=== PATIENT | male | born 1995 | race Two or more races ===

== ENCOUNTER 2019-01-04 04:59 | Inpatient (IN) | payer MEDICARE ==
[~2019-01-04 04:59] MED LIST: BUPIVACAINE HCL/PF 0.5% (5 MG/ML) 30 ML VIAL IJ ONE
--- NOTE | 2019-01-04 06:06 | PDOC ---
History of Present Illness - General Chief Complaint: Nausea/Vomiting Stated Complaint: ABDOMINAL PAIN - History of Present Illness Initial Comments: 01/04/19 06:06 23y/o M with no significant. hx presenting to ED with 1 day of cramping abdominal epigastric pain. He describes it as non-radiating pain that began yesterday morning. The pain last for 5-10 minutes and is relieved by vomiting.He has had 3-4 episodes of non-bloody emesis and has been unable to keep food down. His last bowel movement was yesterday at 5pm. He denies any urinary symptoms (dysuria, hematuria,urgency, frequency), diarrhea, bloody stools, fevers, chills, back pain. 01/04/19 06:11 01/04/19 06:30 Past History - Past Medical History Allergies/Adverse Reactions: Allergies Allergy/AdvReac Type Severity Reaction Status Date / Time No Known Allergies Allergy Verified 01/04/19 05:40 Home Medications: Ambulatory Orders Amox-Tr/K Cl [Augmentin - 875Mg Tablet] 1 tab PO BID #14 tablet 01/04/19 Oxycodone HCl/Acetaminophen [Percocet 5/325 -] 1 tab PO Q6H #40 tab MDD 5 COPD: No Other medical history: DENIES - Immunization History Immunization Up to Date: Yes - Suicide/Smoking/Psychosocial Hx Smoking History: Never smoked Have you smoked in the past 12 months: No Information on smoking cessation initiated: No Hx Alcohol Use: No Drug/Substance Use Hx: No Review of Systems - Review of Systems All Other Systems: Reviewed and Negative *Physical Exam - Vital Signs Last Vital Signs Temp Pulse Resp BP Pulse Ox 98.5 F 110 H 17 135/87 100 01/04/19 05:38 01/04/19 05:38 01/04/19 05:38 01/04/19 05:38 01/04/19 05:38 - Physical Exam General Appearance: Yes: Nourished, Appropriately Dressed. No: Apparent Distress HEENT: negative: Scleral Icterus (R), Scleral Icterus (L) Neck: positive: Trachea midline, Supple. negative: Tender Respiratory/Chest: positive: Lungs Clear, Normal Breath Sounds. negative: Chest Tender, Respiratory Distress, Accessory Muscle Use, Labored Respiration, Wheezing Cardiovascular: positive: Regular Rhythm, Regular Rate, S1, S2. negative: Edema , JVD Vascular Pulses: Dorsalis-Pedis (R): 2+, Doralis-Pedis (L): 2+ Gastrointestinal/Abdominal: positive: Normal Bowel Sounds, Soft, Rebound. negative: Protuberent, Distended, Guarding, Tenderness Musculoskeletal: positive: Normal Inspection. negative: CVA Tenderness, Decreased Range of Motion Extremity: positive: Normal Capillary Refill, Normal Inspection, Normal Range of Motion. negative: Pedal Edema Integumentary: positive: Normal Color, Dry, Warm Neurologic: positive: Fully Oriented, Alert, Normal Mood/Affect, Normal Response ED Treatment Course - LABORATORY CBC & Chemistry Diagram: 01/04/19 06:20 01/04/19 06:20 Medical Decision Making - Medical Decision Making 01/04/19 06:18 23y/o M with no significant. hx presenting to ED with 1 day of cramping abdominal epigastric pain. Ddx: Appendicitis vs Nephrolithiasis vs gastroenteritis -Fluids (IV normal saline) -cbc,cmp, ua -CT abdomen and pelvis with contrast. 01/04/19 06:30 01/04/19 06:56 *DC/Admit/Observation/Transfer Diagnosis at time of Disposition: Appendicitis Qualifiers: Appendicitis type: acute appendicitis Acute appendicitis type: unspecified acute appendicitis type Qualified Code(s): K35.80 - Unspecified acute appendicitis - Discharge Dispostion Disposition: HOME Condition at time of disposition: Good - Referrals - Patient Instructions - Post Discharge Activity
[2019-01-04] MEDS ORDERED: ACETAMINOPHEN 1000 MG/100 ML VIAL (NON FORMULARY) IVPB ONE ×2 (06:08→14:36)
[2019-01-04] MEDS ORDERED: SODIUM CHLORIDE 1,000 ML IV STA (06:08)
[2019-01-04] MEDS ORDERED: KETOROLAC TROMETHAMINE 30 MG/1 ML VIAL IVPUSH ONE (06:10)
--- NOTE | 2019-01-04 06:10 | PDOC ---
Attending Attestation - Resident Resident Name: Michael Farmer - ED Attending Attestation I have performed the following: I have examined & evaluated the patient, The case was reviewed & discussed with the resident, I agree w/resident's findings & plan - HPI HPI: 01/04/19 06:09 Pt comes with on off left sided abd pain. - Physicial Exam PE: 01/04/19 06:10 Agree with resident exam - Medical Decision Making 01/04/19 06:10 Hydration, toradol, labs, UA , reeval. Pt will be signed out to the day team. 01/04/19 06:53 Pt has WBC of 16 with 90% shift; he may have appendicitis. We are awaiting CT abd/pelvis and chem 01/08/19 22:13 Pt signed out
[2019-01-04] MEDS ORDERED: KETOROLAC TROMETHAMINE 30 MG/1 ML VIAL ONE (06:12)
[2019-01-04 06:31] LABS: BASO % 0.3 % (0-2.0); HEMATOCRIT 40.3 % (35.4-49); HEMOGLOBIN 13.9 GM/dL (11.7-16.9); LYMPH % 3.1 % (8-40); MCH 30.4 pg (25.7-33.7); MCHC 34.6 g/dl (32.0-35.9); MEAN CELL VOLUME 87.9 fl (80-96); MEAN PLT VOLUME 8.7 fl (7.5-11.1); MONO % 6.1 % (3.8-10.2); NEUT % 90.5 % (42.8-82.8); PLATELET COUNT 209 K/MM3 (134-434); RBC 4.58 M/mm3 (4.00-5.60); RDW 12.6 % (11.9-15.9); WHITE BLOOD COUNT 16.2 K/mm3 (4.0-10.0)
[2019-01-04 06:54] LABS: ALBUMIN 4.3 g/dl (3.4-5.0); BILIRUBIN,TOTAL 0.9 mg/dL (0.2-1); BLOOD UREA NITROGEN 9.7 mg/dL (7-18); CALCIUM 9.4 mg/dL (8.5-10.1); POTASSIUM 4.6 mmol/L (3.5-5.1); TOT PROT 7.5 g/dl (6.4-8.2)
--- NOTE | 2019-01-04 07:26 | PDOC ---
*Physical Exam - Vital Signs Last Vital Signs Temp Pulse Resp BP Pulse Ox 98.5 F 110 H 17 135/87 100 01/04/19 05:38 01/04/19 05:38 01/04/19 05:38 01/04/19 05:38 01/04/19 05:38 - Physical Exam General Appearance: Yes: Nourished, Appropriately Dressed. No: Apparent Distress, Disheveled HEENT: positive: EOMI, Normal Voice, Symmetrical Neck: positive: Trachea midline. negative: Tender, Carotid bruit Respiratory/Chest: positive: Lungs Clear, Normal Breath Sounds. negative: Chest Tender, Respiratory Distress, Accessory Muscle Use Cardiovascular: positive: Regular Rhythm, Regular Rate, S1, S2. negative: Murmur Vascular Pulses: Dorsalis-Pedis (R): 2+, Doralis-Pedis (L): 2+ Gastrointestinal/Abdominal: positive: Normal Bowel Sounds, Flat, Soft, Other ( no rebound on my exam s/p toradol and IVF). negative: Tender, Organomegaly, Pulsatile Mass, Guarding Musculoskeletal: positive: Normal Inspection. negative: CVA Tenderness Extremity: positive: Normal Capillary Refill, Normal Inspection, Normal Range of Motion Integumentary: positive: Normal Color, Dry, Warm. negative: Cyanotic, Erythema , Jaundice, Rash Neurologic: positive: privacy officer II-XII NML intact, Fully Oriented, Alert, Normal Response, Motor Strength 5/5 ED Treatment Course - LABORATORY CBC & Chemistry Diagram: 01/04/19 06:20 01/04/19 06:20 - ADDITIONAL ORDERS Additional order review: Laboratory Results 01/04/19 06:20 Sodium 139 Potassium 4.6 Chloride 104 Carbon Dioxide 30 Anion Gap 5 L BUN 9.7 Creatinine 1.0 Est GFR (CKD-EPI)AfAm 123.27 Est GFR (CKD-EPI)NonAf 106.36 Random Glucose 132 H Calcium 9.4 Total Bilirubin 0.9 AST 13 L ALT 17 Alkaline Phosphatase 69 Total Protein 7.5 Albumin 4.3 01/04/19 06:20 RBC 4.58 MCV 87.9 MCHC 34.6 RDW 12.6 MPV 8.7 Neutrophils % 90.5 H Lymphocytes % 3.1 L Monocytes % 6.1 Eosinophils % 0.0 Basophils % 0.3 - Medications Given in the ED: ED Medications Discontinued Medications Generic Name Dose Route Start Last Admin Trade Name Freq PRN Reason Stop Dose Admin Acetaminophen 1,000 mg 01/04/19 06:08 01/04/19 06:29 Ofirmev Injection - IVPB 01/04/19 06:09 Not Given ONCE ONE Sodium Chloride 1,000 mls @ 1,000 mls/hr 01/04/19 06:08 01/04/19 06:28 Normal Saline - IV 01/04/19 07:07 1,000 mls/hr ASDIR STA Administration Ketorolac Tromethamine 30 mg 01/04/19 06:10 01/04/19 06:28 Toradol Injection - IVPUSH 01/04/19 06:11 30 mg ONCE ONE Administration Medical Decision Making - Medical Decision Making 01/04/19 07:19 23y/o man with no significant pmh p/w 1 day of cramping, non-radiating, abdominal epigastric pain and n/v. -Sign out received from Dr. Farmer -Baseline exam: +rebound, tachy to 110 -CBC with leukocytosis (16.2) -CMP / Liver Studies / Glucose wnl / Cr 1.0 -Urine pending -CTAP w/contrast pending 01/04/19 07:34 -Pt without tenderness / rebound on my exam s/p medication and fluids. Endorsing some hunger. No nausea or vomiting at this time. -Headed to CT 01/04/19 08:27 -CTAP with appendicitis, possible perforation -Zosyn 4.5 given -Last meal 3AM, confirmed no medications -NPO -PT/INR, T&S, EKG ordered 01/04/19 08:33 -Spoke to Dr. Linder with surgery 01/04/19 08:36 -EKG NSR, Tachycardic to 106, Normal axis, QTc 443, Normal morphologies without ischemic changes *DC/Admit/Observation/Transfer Diagnosis at time of Disposition: Appendicitis Qualifiers: Appendicitis type: acute appendicitis Acute appendicitis type: unspecified acute appendicitis type Qualified Code(s): K35.80 - Unspecified acute appendicitis - Discharge Dispostion Condition at time of disposition: Guarded Decision to Admit order: Yes - Referrals - Patient Instructions - Post Discharge Activity
[2019-01-04 07:44] LABS: EPI CELLS 3.3 /HPF (0-5/HPF); HYALINE CASTS 20 /lpf (0-8); PH,URINE >= 9.0 (5.0-8.0); URINE APPEARANCE CLEAR; URINE BACTERIA 2.7 /hpf (NEGATIVE); URINE BILIRUBIN NEGATIVE (NEGATIVE); URINE COLOR YELLOW; URINE GLUCOSE (UA) TRACE (NEGATIVE); URINE KETONE 3+ (NEGATIVE); URINE LEUK ESTERASE NEGATIVE (NEGATIVE); URINE NITRITE NEGATIVE (NEGATIVE); URINE PROTEIN 1+ (NEGATIVE); URINE RBC 1 /hpf (0-4); URINE WBC 1 /hpf (0-5)
[2019-01-04] MEDS ORDERED: PIPERACILLIN/TAZOB 4.5 GM 4.5 GM in DEXTROSE 5%-WATER 100 ML IVPB ONE ×2 (08:20→17:30)
[2019-01-04] MEDS ORDERED: PIPERACILLIN/TAZOB 4.5 GM 4.5 GM/100 ML BAG IVPB ONE (08:25)
[2019-01-04] MEDS ORDERED: morphine SULFATE 4 MG/ML VIAL IVPUSH PRN ×2 (08:51→14:28)
--- NOTE | 2019-01-04 09:01 | CONSULT ---
Consult Consult Specialty:: General Surgery - History Source History Provided By: Patient, Medical Record Limitations to Obtaining History: No Limitations - Alcohol/Substance Use Hx Alcohol Use: No - Smoking History Smoking history: Never smoked Have you smoked in the past 12 months: No Home Medications - Allergies Allergies/Adverse Reactions: Allergies Allergy/AdvReac Type Severity Reaction Status Date / Time No Known Allergies Allergy Verified 01/04/19 05:40 - Home Medications Home Medications: Ambulatory Orders NK [No Known Home Medication] 01/04/19 Physical Exam Vital Signs: Vital Signs Temperature 98.5 F 01/04/19 05:38 Pulse Rate 110 H 01/04/19 05:38 Respiratory Rate 17 01/04/19 05:38 Blood Pressure 135/87 01/04/19 05:38 O2 Sat by Pulse Oximetry (%) 100 01/04/19 05:38 Labs: CBC, BMP 01/04/19 06:20 01/04/19 06:20
--- NOTE | 2019-01-04 09:02 | HP ---
Admitting History and Physical - Admission Chief Complaint: abdominal pain History of Present Illness: 23yo male with no significant PMH presented to ED with 1 day of cramping abdominal epigastric pain. He describes it as non-radiating pain that began yesterday morning. The pain last for 5-10 minutes and is relieved by vomiting.He has had 3-4 episodes of non-bloody emesis and has been unable to keep food down. His last bowel movement was yesterday at 5pm. He denies any urinary symptoms (dysuria, hematuria,urgency, frequency), diarrhea, bloody stools, fevers, chills, back pain. History Source: Patient, Medical Record Limitations to Obtaining History: No Limitations - Smoking History Smoking history: Never smoked Have you smoked in the past 12 months: No - Alcohol/Substance Use Hx Alcohol Use: No Home Medications - Allergies Allergies/Adverse Reactions: Allergies Allergy/AdvReac Type Severity Reaction Status Date / Time No Known Allergies Allergy Verified 01/04/19 05:40 - Home Medications Home Medications: Ambulatory Orders NK [No Known Home Medication] 01/04/19 Review of Systems - Review of Systems Constitutional: denies: Chills, Fever Eyes: denies: Blind Spots, Recent Change in Vision HENT: denies: Difficult Swallowing, Throat Pain Neck: denies: Decreased ROM, Tenderness Cardiovascular: denies: Chest Pain, Palpitations Respiratory: denies: Cough, SOB, SOB on Exertion Gastrointestinal: reports: Abdominal Pain. denies: Constipation, Diarrhea Genitourinary: denies: Burning, Discharge, Dysuria Musculoskeletal: denies: Crepitus, Muscle Pain Integumentary: denies: Pallor, Rash Neurological: denies: Seizure, Syncope, Tremors Endocrine: denies: Unexplained Weight Gain, Unexplained Weight Loss Hematology/Lymphatic: denies: Easily Bruised, Excessive Bleeding Psychiatric: denies: Anxiety, Depression Physical Examination Vital Signs: Vital Signs Temperature 98.5 F 01/04/19 05:38 Pulse Rate 110 H 01/04/19 05:38 Respiratory Rate 17 01/04/19 05:38 Blood Pressure 135/87 01/04/19 05:38 O2 Sat by Pulse Oximetry (%) 100 01/04/19 05:38 Constitutional: Yes: Well Nourished, No Distress, Calm Eyes: Yes: Conjunctiva Clear, EOM Intact HENT: Yes: Atraumatic, Normocephalic Neck: Yes: Supple, Trachea Midline Cardiovascular: Yes: Regular Rate and Rhythm, S1, S2 Respiratory: Yes: Regular, CTA Bilaterally Gastrointestinal: Yes: Normal Bowel Sounds, Soft, Tenderness, Tenderness, Rebound (RLQ) ...Rectal Exam: No: Deferred Renal/: No: CVA Tenderness - Left, CVA Tenderness - Right Breast(s): No: Mass, Nipple Inversion Musculoskeletal: No: Muscle Pain, Muscle Weakness Extremities: No: Cool, Cyanosis Edema: No Peripheral Pulses WNL: Yes Peripheral Pulses: Left Radial: 2+, Right Radial: 2+, Left Doralis Pedis: 2+, Right Dorsalis Pedis: 2+, Left Femoral: 2+, Right Femoral: 2+ Integumentary: No: Bruising, Skin Tear Neurological: Yes: Alert, Oriented Psychiatric: Yes: Alert, Oriented Labs: CBC, BMP 01/04/19 06:20 01/04/19 06:20 Imaging - Results Cat Scan: Report Reviewed, Image Reviewed Problem List - Problems (1) Acute appendicitis with localized peritonitis Assessment/Plan: 23yo male with acute appendicitis X1 day NPO and IVF hydartion OR for emergency surgery Discussed with patient risks, benefits and alternatives of laparoscopic possible open appendectomy, including but not limited to bleeding, infection, injury to adjacent structures, leak or injury, intraabdominal abscess, incisional hernia, need for further procedures, ; alternatives include antibiotics, delayed or no surgery - risks of this include failure of nonoperative therapy, perforation, sepsis, recurrence, . Patient desires to proceed with operation - will take to OR for above. Informed consent signed for same. Code(s): K35.30 - ACUTE APPENDICITIS WITH LOC PERITONITIS, W/O PERF OR GANGR Qualifiers: Appendicitis gangrene presence: without gangrene Appendicitis perforation presence: unspecified whether perforation present Appendicitis abscess presence: unspecified whether abscess present Qualified Code(s): K35.30 - Acute appendicitis with localized peritonitis, without perforation or gangrene (2) Abdominal pain in male Code(s): R10.9 - UNSPECIFIED ABDOMINAL PAIN (3) Leukocytosis Code(s): D72.829 - ELEVATED WHITE BLOOD CELL COUNT, UNSPECIFIED Qualifiers: Leukocytosis type: bandemia Qualified Code(s): D72.825 - Bandemia (4) Appendiceal abscess Code(s): K35.33 - ACUTE APPENDICITIS WITH PERF AND LOC PERITONITIS, WITH ABSCS
[2019-01-04] MEDS: LACTATED RINGERS SOLUTION 1,000 ML IV SCH ×3 (09:09→21:18)
[2019-01-04 09:29] LABS: INR 1.13 (0.83-1.09); PROTHROMBIN TIME (PATIENT) 13.3 SEC (9.7-13.0)
[2019-01-04] MEDS ORDERED: BUPIVACAINE HCL/PF 0.5% (5MG/ML) 10 ML VIAL ONE (11:18)
--- NOTE | 2019-01-04 11:49 | EKG ---
Test Reason : Blood Pressure : / mmHG Vent. Rate : 106 BPM Atrial Rate : 106 BPM P-R Int : 144 ms QRS Dur : 092 ms QT Int : 334 ms P-R-T Axes : 071 051 063 degrees QTc Int : 443 ms SINUS TACHYCARDIA OTHERWISE NORMAL ECG NO PREVIOUS ECGS AVAILABLE Confirmed by BACILIO DOTSON MD ([id number]) on 01/04/2019 11:48:52 AM Referred By: Confirmed By:BACILIO DOTSON MD
[2019-01-04 12:01] VITALS: BMI 20.7
[2019-01-04] MEDS ORDERED: MIDAZOLAM HCL 2 MG/2 ML SINGLE DOSE VIAL ONE ×2 (12:55)
[2019-01-04] MEDS ORDERED: fentaNYL CITRATE 250 MCG/5 ML VIAL ONE (13:00)
[2019-01-04] MEDS ORDERED: BUPIVACAINE HCL/PF 0.5% (5 MG/ML) 30 ML VIAL IJ ONE ×2 (13:00)
[2019-01-04] MEDS ORDERED: ROCURONIUM BROMIDE 50 MG/5 ML SYRINGE ONE (13:01)
[2019-01-04] MEDS ORDERED: PROPOFOL 20 ML ONE (13:01)
[2019-01-04] MEDS ORDERED: NEOSTIGMINE METHYLSULFATE 0.5 MG/ML - 10 ML MDV ONE (13:44)
--- NOTE | 2019-01-04 13:53 | OP ---
Operative Note - Note: Operative Date: 01/04/19 Pre-Operative Diagnosis: acute appendicistis with localized peritonitis Operation: laparoscopic appendectomy Findings: inflammed appendix with purulent exudate Post-Operative Diagnosis: Same as Pre-op Surgeon: Bucky Linder Anesthesiologist/ELECTRICAL SYSTEMS DESIGN ENGINEER: Nicolasa Vasquez MD Anesthesia: General, Local (0.5% marcaine ) Specimens Removed: appendix Estimated Blood Loss (mls): 4 Drains, Volume Out (mls): 10 (roman (removed)) Fluid Volume Replaced (mls): 400 Operative Report Dictated: Yes
[2019-01-04] MEDS ORDERED: ACETAMINOPHEN INJECTION 100 ML IVPB ONE (14:20)
[2019-01-04] MEDS ORDERED: ONDANSETRON 4 MG/2 ML VIAL IVPUSH PRN (14:35)
[2019-01-04] MEDS ORDERED: LACTATED RINGERS SOLUTION 1,000 ML IV SCH (14:45)
[2019-01-04] MEDS ORDERED: BENZOCAINE/MENTH/CETYLPYRD CL 1 EACH LOZENGE MM PRN (16:26)
[2019-01-04] MEDS ORDERED: ONDANSETRON 4 MG/2 ML VIAL IVPB PRN (16:26)
[2019-01-04] MEDS ORDERED: PIPERACILLIN/TAZOBACTAM 4.5 GM VIAL IVPB ONE (16:43)
[2019-01-04] MEDS ORDERED: DEXTROSE 5%-WATER 100 ML IVPB ONE (16:43)
[2019-01-05] MEDS: LACTATED RINGERS SOLUTION 1,000 ML IV SCH (03:38)
[2019-01-05 09:55] VITALS: BP 123/68; PULSE 88; TEMP 98.2
--- NOTE | 2019-01-05 20:28 | DS ---
Physical Examination Vital Signs: Vital Signs Temperature 98.2 F 01/05/19 09:54 Pulse Rate 88 01/05/19 09:54 Respiratory Rate 20 01/05/19 09:54 Blood Pressure 123/68 01/05/19 09:54 O2 Sat by Pulse Oximetry (%) 99 01/04/19 21:00 Findings/Remarks: stable overnight. no complaint this morning Constitutional: Yes: Well Nourished, No Distress, Calm Eyes: Yes: Conjunctiva Clear, EOM Intact HENT: Yes: Atraumatic, Normocephalic Neck: Yes: Supple, Trachea Midline Cardiovascular: Yes: Regular Rate and Rhythm, S1, S2 Respiratory: Yes: Regular, CTA Bilaterally Gastrointestinal: Yes: Normal Bowel Sounds, Soft. No: Tenderness ...Rectal Exam: Yes: Deferred Renal/: No: CVA Tenderness - Left, CVA Tenderness - Right Breast(s): No: Mass, Skin Changes Musculoskeletal: No: Muscle Pain, Muscle Weakness Extremities: No: Cool, Cyanosis Edema: No Peripheral Pulses WNL: Yes Peripheral Pulses: Left Radial: 2+, Right Radial: 2+, Left Doralis Pedis: 2+, Right Dorsalis Pedis: 2+, Left Femoral: 2+, Right Femoral: 2+ Integumentary: No: Jaundice, Rash Wound/Incision: Yes: Clean/Dry, Well Approximated, Dressing Dry and Intact Neurological: Yes: Alert, Oriented Psychiatric: Yes: Alert, Oriented Labs: CBC, BMP 01/04/19 06:20 01/04/19 06:20 Discharge Summary Reason For Visit: APPENDICITIS acute appendicitis Procedures: Principal: laparoscopic appendectomy Hospital Course: admitted for emergency procedure. uneventful surgery. stable for discharge home Condition: Good - Instructions Diet, Activity, Other Instructions: Postoperative instructions: You had a laparoscopic appendectomy on 01/04/[address] Bucky Linder of [facility]. Activity: Resume your usual activities gradually, but no heavy exertion or lifting more than 10-15 pounds for 1 month. You may shower daily starting then, just pat the incision areas dry. No bath or swimming until skin incisions have healed. Eat lightly at first, but advance to your usual diet as tolerated. Pain: For pain, you may use and alternate Tylenol (acetaminophen) 1-2 pills and/ or ibuprofen 200 mg (1-3 pills) every 6 hours each as needed; this means that you can take one OR the other at 3-hour intervals. If you are prescribed a Tylenol/narcotic combination for severe pain, use it instead of plain Tylenol as needed and switch back when your pain starts decreasing. Do not take more than 4000mg of acetaminophen in a day. Take medications as prescribed or indicated on the labeling. Follow-up: Call Dr. Linder' office at [phone] to make your postop appointment (Friday in approximately 2 weeks after surgery). Clinic is held in the [facility] on the first floor of [facility]. Call the office if you have: * increasing pain not responsive to pain medication * fever of 101F or higher * vomiting * unusual or increasing bleeding or drainage from wounds * increasing redness or swelling at wound sites * inability to urinate Also, see your primary medical doctor within 1-2 weeks. Disposition: HOME - Home Medications Comprehensive Discharge Medication List: Ambulatory Orders Amox-Tr/K Cl [Augmentin - 875Mg Tablet] 1 tab PO BID #14 tablet 01/04/19 Oxycodone HCl/Acetaminophen [Percocet 5/325 -] 1 tab PO Q6H #40 tab MDD 5
--- NOTE | 2019-01-06 08:23 | OP ---
DATE OF OPERATION: 01/04/2019 PREOPERATIVE DIAGNOSIS: Acute appendicitis with localized peritonitis in right lower quadrant. POSTOPERATIVE DIAGNOSIS: Acute appendicitis with localized peritonitis in right lower quadrant. PROCEDURE: Laparoscopic appendectomy. ATTENDING SURGEON: Bucky Linder MD WIND FARM OPERATIONS MANAGER: No one. ANESTHESIOLOGIST: Nicolasa Vasquez MD ANESTHESIA TYPE: General with local, local consisting of 0.5% Marcaine a total of 10 mL given at the port sites. ESTIMATED BLOOD LOSS: 4 mL. INTRAVENOUS FLUID REPLACED: 400 mL. DRAINED FLUID: Urine, 10 mL, which was removed postoperatively. SPECIMEN: Appendix. BRIEF FINDINGS: Patient had an inflamed appendix with purulent exudate on the surface. . INDICATIONS: Patient is a 23-year-old male presenting with right lower quadrant pain x3 days, worsening low-grade fevers, and a leukocytosis of 16,000. He was counseled regarding risks, benefits, and alternatives to surgical appendectomy. He signed informed consent and was taken to the procedure. DESCRIPTION OF PROCEDURE: The patient was brought to the operating room, was placed in supine position on the operating table with the left arm tucked and the right arm extended at 90 degrees perpendicular to the bodys midline axis at the shoulder. Lower extremities had SCDs placed to compression. He was given intravenous antibiotics prior to the start of surgery. He was induced with general anesthesia, endotracheally intubated. At which point, after sterile prep and drape of the anterior abdominal wall, we began with a formal time-out identifying the operative site and the procedure. With all parties in agreement, we began first with a supraumbilical entry into the abdomen. A Lyla entry was inscribed in the skin and incised with a 15-blade scalpel, and deepened and widened through subcutaneous tissue with Bovie cautery to the anterior rectus fascia. The fascia was elevated into the surgical wound. A blunt entry was made with a clamp into the abdomen, and a digit was used to clear the intraabdominal viscera from the port site. A 12-mm Lyla trocar was then installed into the abdomen, and pneumoperitoneum was established to 15 mmHg. At which point, we began first with an inspection of the abdomen and the right lower quadrant. With the patient in steep Trendelenburg, we installed additional port sites at the suprapubic position as well as the left lower quadrant. This allowed for dissection of what appeared to be a grossly inflamed appendix with purulent exudate on its surface. There was a significant amount of ascites in the pelvis which was suctioned free. The base of the appendix was identified at the termination of the taeniae coli on the cecum. At which point, a plane was developed between the mesoappendix and the appendix body itself. An Endo BREANA stapler was introduced into the abdomen from the umbilical port, and stapled across the base after the camera was resided to the left lower quadrant. After controlling the base, the appendix itself was dissected with the LigaSure device along the mesoappendix. Hemostasis was obtained in this manner. Additional purulent exudate was scraped from the wall and then retrieved with an EndoCatch bag 10 mm from the umbilical port, as well. The specimen was then passed off for final pathologic diagnosis. We then removed ports under direct visualization and relieved the pneumoperitoneum. The Lyla entry port was ablated with a [id number] 0 Vicryl to close the abdomen. The skin was then closed with Dermabond after 4-0 Vicryl was used to approximate the skin edges at the deep dermis. The skin was cleaned. Sterile dressings in the form of Dermabond were placed. Counts were correct prior to the closure of the abdomen. MD LEWIS Holly/[id number]
--- NOTE | 2019-01-06 17:52 | PATH ---
Surgical Pathology Report Patient Name: LEXI CHO Med. Rec. #: [id number] /Age/Gender: 1995 (Age: 23) / M Account: [id number] Location: [address] [place] [address] Taken: 01/04/2019 Received: 01/05/2019 Reported: 01/06/2019 Physicians: PHYSICIAN EMERGENCY DEPT Bucky Linder M.D. Specimen(s) Received APPENDIX Clinical History Appendicitis Final Diagnosis APPENDIX, LAPAROSCOPIC APPENDECTOMY: ACUTE APPENDICITIS AND PERIAPPENDICITIS. ACUTE SEROSITIS. Electronically Signed Rashmi Newberry M.D. Gross Description Received in formalin, labeled "appendix," is a 7 cm. in length vermiform appendix with a stapled margin of resection and moderate attached fat. The serosa is sandy-nielsen with abundant attached exudate. Sectioning reveals a markedly hemorrhagic lumen. The wall of the appendix averages 0.1 cm. in thickness. Furniture Designer sections are submitted in one cassette. 01/05/2019 [facility]01/05/2019
== END 2019-01-05 14:29 | disposition home or self-care (01) | DRG 225 ==
LOC: JER 04:59 → JASUSAT 08:34 → JERBED 08:51 → J6S 09:41
PROC: 0DTJ8ZZ Resection of Appendix, Via Natural or Artificial Opening Endoscopic (ICD-10-PCS; principal; 2019-01-04 12:30)
DX: K35.33 Acute appendicitis with perforation, localized peritonitis, and gangrene, with abscess (principal); R10.31 Right lower quadrant pain; D72.829 Elevated white blood cell count, unspecified; R18.8 Other ascites; D72.825 Bandemia
CPT/HCPCS: 36415; 74177-TC; 80053; 81003; 85025; 85610; 86850; 86900; 86901; 88304-TC; 93005; 93010; 94760; 99285-25; J0131; J7030